=== PATIENT | female | born 1975 | race Caucasian/White ===

== ENCOUNTER 2022-09-12 07:25 | Day surgery (SDC) | payer BC, SELFPAY ==
[2022-09-12] VITALS (12 sets, daily range): BP systolic 96–141; BP diastolic 60–87; PULSE 63–98; RESP 12–16; TEMP 36.1–36.6; O2SAT 96–100; BMI 39.0
--- NOTE | 2022-09-12 08:02 | SUR.PREOP ---
Patient provided home covid negative results to RN.
[2022-09-12 08:04] LABS: HCG Qualitative* Negative (Negative)
[2022-09-12] MEDS: SODIUM CHLORIDE 0.9 % (FLUSH) 10 ML SYRINGE IVF (08:20)
[2022-09-12] MEDS: LACTATED RINGERS 1000 ML 1,000 ML 100 ML IV (08:20)
--- NOTE | 2022-09-12 08:38 | SUR.PREOP ---
Patient provided home covid negative results to RN.
--- NOTE | 2022-09-12 09:33 | W.ANESCHARGE ---
Anesthesia Charges Start Date/Time Anesthesia Start Date: 09/12/22 Anesthesia Start Time: 09:32 Stop Date/Time Anesthesia Stop Date: 09/12/22 Anesthesia Stop Time: 10:21
[2022-09-12] MEDS: CEFAZOLIN 2 GM in 0.9 % SODIUM CHLORIDE Mini-bag 100 ML IVPB (09:39)
--- NOTE | 2022-09-12 10:08 | P.ORPRC_ITS ---
Procedure Note Date of procedure: 09/12/22 Procedure: PREOPERATIVE DIAGNOSIS: 1. Left knee medial meniscus tear POSTOPERATIVE DIAGNOSIS: 1. Left knee medial meniscus tear 2. 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 Left knee medial plica PROCEDURE: 1. Left knee arthroscopic partial medial meniscectomy 2. Left knee arthroscopic chondroplasty medial and patellofemoral compartments of loose chondral flaps 3. Left knee limited synovectomy (plica excision) SURGEON: Anurag Aggarwal M.D. INSOLE CHANNELER: Ko CONTRERAS. Of note, an family readiness support assistant was critical for this case to aid in patient positioning, knee manipulation, instrument exchange, and closure. ANESTHESIA: Spinal EBL: 2ml TOURNIQUET: 25 minutes at 300 torr COMPLICATIONS: None evident INDICATIONS: The patient is a pleasant 46-year-old female who has experienced left knee pain particularly with any twisting or turning. Physical exam was concerning for medial meniscus tear, this was confirmed on MRI. Additionally, attempted nonoperative management has been tried, and failed. Thus, surgery was recommended. FINDINGS: Grade 3-4 chondromalacia patella median ridge and to a greater degree trochlear groove measuring up to 25 mm medial-lateral. Grade 3-4 chondromalacia medial femoral condyle weight-bearing portion nearly across the full breath of the femur and extending approximately 15 mm anterior-posterior with loose chondral flaps in both of those compartments. Complex tearing of the posterior horn medial meniscus with a longitudinal component. The posterior root remained intact. ACL and PCL intact and robust. Lateral compartment showed intact lateral meniscus and healthy articular cartilage. No loose bodies appreciated. DESCRIPTION OF PROCEDURE: After a thorough discussion of risks, benefits, and alternatives, the patient was brought to the operating room and placed upon the operating table. Induction of anesthesia was undertaken as previously noted. 2g iv Ancef was administered within 1 hr of incision preoperatively. Appropriate time-out was performed identifying proper patient, site, and procedure. The left lower extremity was prepped and draped in the appropriate sterile fashion using ChloraPrep. The limb was exsanguinated and tourniquet inflated. Anterolateral and anteromedial portals were established with an 11 blade, and a diagnostic arthroscopy was performed. This identified the findings as noted above. Following the diagnostic arthroscopy, a partial medial menisectomy was performed with the combination of basket forceps and a motorized shaver. In addition, chondroplasty was performed with a combination of basket forceps and torpedo shaver in the patellofemoral (trochlear groove) and medial compartments. Additionally, the medial plica was resected with the torpedo shaver back to the capsule. Following this, the meniscus was re-probed and found to be stable. Approximately 25-33 % of the overall meniscus required resection. At this stage, the shaver was reinserted into the suprapatellar pouch and all remaining meniscal debris was evacuated. Instruments were removed, excess fluid was drained, and closure performed with 4-0 Monocryl with Steri-Strips. Dressings were applied, the tourniquet deflated, and the patient was awoken from anesthesia and transferred to the PACU in stable condition. PLAN: 1. Weightbear as tolerated operative extremity. Crutch / walker ambulation assistance PRN. Straight leg raise to be initiated starting tomorrow by the patient. 2. Ice, acetominophen and/or ibuprofen, and Percocet for pain as needed. 3. Knee range of motion and quad sets/straight leg raise regularly 4. Follow up with PA visit in 7-10 days. for a wound check. Initiate physical therapy at that time
[2022-09-12] MEDS: ROPIVACAINE 0.5% 30 ML 150 MG INJECTION (10:12)
--- NOTE | 2022-09-12 10:25 | W.ANESCHARGE ---
Anesthesia Charges Start Date/Time Anesthesia Start Date: 09/12/22 Anesthesia Start Time: 09:32 Stop Date/Time Anesthesia Stop Date: 09/12/22 Anesthesia Stop Time: 10:21
== END 2022-09-12 12:00 | disposition home or self-care (01) ==
PROVIDERS: PCP Family Medicine; Visit Provider Orthopaedic Surgery Sports Medicine
PROC: (CPT 29870; principal; 2022-09-12 09:00)
DX: S83.232A Complex tear of medial meniscus, current injury, left knee, initial encounter (principal); M22.42 Chondromalacia patellae, left knee; M67.52 Plica syndrome, left knee
CPT/HCPCS: 29881; 29875; 01400; 84703; J0690; J2250; J2400; J2704; J2795; J3010; J7120

== ENCOUNTER 2022-12-03 08:15 | Outpatient (RCR) | payer BC, SELFPAY | END 2023-02-22 14:41 | disposition home or self-care (01) | PROVIDERS: PCP Family Medicine; Visit Provider Physician Assistant Surgical | DX: Z98.890 Other specified postprocedural states (principal); Z51.89 Encounter for other specified aftercare | CPT/HCPCS: 97110; 97162 ==